=== PATIENT | male | born 1940 | race Caucasian/White ===

== ENCOUNTER → 2020-04-13 | Outpatient (CLI) | payer MEDICARE ==
[~2020-04-13] MED LIST: ALPR0.5T7 PO; AZIT500T PO; ESCI10TA10 PO; LEVO750T26 PO; PRED10TA PO; PRED20TA PO; PRED50TA PO
== END | disposition home or self-care (01) ==
LOC: STAR 12:31
PROVIDERS: ATTEND Anesthesiology
DX: Z01.812 Encounter for preprocedural laboratory examination (principal); Z20.828 Contact with and (suspected) exposure to other viral communicable diseases
CPT/HCPCS: 36415; 87635

== ENCOUNTER → 2020-05-30 | Outpatient (CLI) | payer MEDICARE ==
[~2020-05-30] MED LIST changes: +ALPR1TAB6 PO; +ASPI81TA45 PO; +ATOR-2 PO; +ATOR10TA9 PO; +CIPR500T3 PO; +CITA40TA5 PO; +FLUT9.9S NAS; +HYDR12.517 PO; +LOSA50TA14 PO; +METF500T17 PO; +PIOG15TA69 PO; +TAMS-11 PO
[2020-05-30 11:22] LABS: BASOPHILS % (AUTO) 1 % (0-1); EOSINOPHILS % (AUTO) 4 % (1-7); LYMPHOCYTES % (AUTO) 25 % (22-44); MEAN CORPUSCULAR HEMOGLOBIN 31.9 pg (27.5-34.5); MEAN CORPUSCULAR HGB CONC 33.5 g/dL (33.2-36.2); MONOCYTES % (AUTO) 9 % (2-9); NEUTROPHILS % (AUTO) 61 % (42-75); PLATELET COUNT 262 x10^3/uL (130-400); RED BLOOD COUNT 4.07 x10^6/uL (4.38-5.82)
[2020-05-30 11:24] LABS: MD NO
[2020-05-30 11:27] LABS: ALBUMIN 3.7 g/dL (3.4-5.0); ANION GAP 4 mmol/L (5-15); CALCIUM 9.2 mg/dL (8.5-10.1); CHLORIDE 105 mmol/L (98-107)
[2020-05-30 11:32] LABS: ALANINE AMINOTRANSFERASE 24 U/L (12-78); ALKALINE PHOSPHATASE 125 U/L (45-117); BILIRUBIN,TOTAL 0.9 mg/dL (0.2-1.0); CREATININE 1.14 mg/dL (0.7-1.3); TOTAL PROTEIN 7.2 g/dL (6.4-8.2)
== END | disposition home or self-care (01) ==
LOC: STAR 09:51
PROVIDERS: ATTEND Urology
DX: Z01.812 Encounter for preprocedural laboratory examination (principal); Z20.828 Contact with and (suspected) exposure to other viral communicable diseases; N20.0 Calculus of kidney; I25.2 Old myocardial infarction
CPT/HCPCS: 36415; 80053; 85025; 87635; 93005

== ENCOUNTER 2020-06-04 13:22 | Day surgery (SDC) | payer MEDICARE ==
[~2020-06-04] VITALS: Ht 167.6 cm; Wt 94.8 kg
[2020-06-04 13:48] VITALS: BP 128/80
[2020-06-04] MEDS ORDERED: CHLORHEXIDINE 15 ML UDC ONE (13:55)
[2020-06-04] MEDS ORDERED: CHLORHEXIDINE 15 ML UDC MM ONE (14:00)
[2020-06-04] MEDS ORDERED: LACTATED RINGERS 1,000 ML IV SCH (14:00)
[2020-06-04] MEDS ORDERED: ONDANSETRON 2MG/ML, 2ML ONE (15:50)
[2020-06-04] MEDS ORDERED: KETOROLAC 30 MG/1 ML ONE (15:50)
[2020-06-04] MEDS ORDERED: CEFAZOLIN 1,000 MG ONE (15:50)
[2020-06-04] MEDS ORDERED: DEXAMETHASONE 4 MG/ML, 1ML ONE (15:50)
[2020-06-04] MEDS ORDERED: PROPOFOL 10 MG/ML, 20ML ONE (15:50)
[2020-06-04] MEDS ORDERED: LIDOCAINE-MPF 1%, 2ML ONE (15:50)
[2020-06-04] MEDS ORDERED: FENTANYL PF 250 MCG/5ML ONE (16:06)
[2020-06-04] MEDS ORDERED: hydrALAzine 20 MG/ML, 1ML IV PRN (16:30)
[2020-06-04] MEDS ORDERED: FENTANYL PF 100 MCG/2ML IV PRN (16:30)
[2020-06-04] MEDS ORDERED: LABETALOL 5MG/ML, 20ML IV PRN (16:30)
[2020-06-04] MEDS ORDERED: LORazepam 2 MG/ML, 1ML IVPush PRN (16:30)
[2020-06-04] MEDS ORDERED: METHOCARBAMOL 1,000 MG in DEXTROSE 5% 100 ML IV PRN (16:30)
[2020-06-04] MEDS ORDERED: ONDANSETRON 2MG/ML, 2ML IVPush PRN (16:30)
[2020-06-04] MEDS ORDERED: HYDROmorphone 1 MG/ML, 1ML INJ IVPush PRN (16:30)
[2020-06-04] MEDS ORDERED: ACETAMINOPHEN 325 MG TABLET PO PRN (16:30)
[2020-06-04] MEDS ORDERED: OXYcodone 5 MG/5 ML ORAL.SOL UDC PO PRN (16:30)
[2020-06-04] MEDS ORDERED: HALOPERIDOL 5 MG/ML IV PRN (16:30)
== END 2020-06-04 18:10 | disposition home or self-care (01) ==
LOC: OR 13:22
PROVIDERS: ATTEND Urology
DX: Z46.6 Encounter for fitting and adjustment of urinary device (principal); N20.1 Calculus of ureter; N40.0 Benign prostatic hyperplasia without lower urinary tract symptoms; N30.30 Trigonitis without hematuria; I10 Essential (primary) hypertension; E11.9 Type 2 diabetes mellitus without complications; E78.5 Hyperlipidemia, unspecified; E66.9 Obesity, unspecified; Z79.899 Other long term (current) drug therapy; Z86.73 Personal history of transient ischemic attack (TIA), and cerebral infarction without residual deficits; Z87.440 Personal history of urinary (tract) infections
CPT/HCPCS: 52351; 82962; J0690; J1100; J1885; J2405; J2704; J3010; J7120; 76000

== ENCOUNTER 2020-06-07 16:23 | Inpatient (IN) | payer MEDICARE ==
[~2020-06-07] VITALS: Ht 167.6 cm; Wt 94.4 kg
--- NOTE | 2020-06-07 17:11 | NUR ---
IV STARTED, LABS WITH 2 SETS OF BLOOD CULTURES DRAWN BY GENERAL INTERNIST. PT ON MONITOR, AUTO BP AND PULSE OX. PT AWARE OF WAITING FOR TEST RESULTS AND TO BE ADMITTED INPATIENT.
[2020-06-07 17:15] LABS: MEAN CORPUSCULAR HEMOGLOBIN 31.4 pg (27.5-34.5); MEAN CORPUSCULAR HGB CONC 32.9 g/dL (33.2-36.2); MEAN PLATELET VOLUME 7.8 fL (7.4-10.4); PLATELET COUNT 240 x10^3/uL (130-400); RED BLOOD COUNT 3.63 x10^6/uL (4.38-5.82); RED CELL DISTRIBUTION WIDTH 14.4 % (9.4-14.8)
[2020-06-07 17:21] LABS: ALANINE AMINOTRANSFERASE 24 U/L (12-78); ALBUMIN 3.1 g/dL (3.4-5.0); ANION GAP 8 mmol/L (5-15); CALCIUM 8.8 mg/dL (8.5-10.1); CHLORIDE 106 mmol/L (98-107); CREATININE 1.15 mg/dL (0.7-1.3)
[2020-06-07 17:23] LABS: ALKALINE PHOSPHATASE 108 U/L (45-117); BILIRUBIN,TOTAL 1.6 mg/dL (0.2-1.0); TOTAL PROTEIN 6.5 g/dL (6.4-8.2)
[2020-06-07 18:09] LABS: MD YES
[2020-06-07 18:12] LABS: BAND#(MANUAL) 1.16 x10^3/uL; BANDS%(MANUAL) 6 % (0-7); BASOS#(MANUAL) 0.19 x10^3/uL (0-0.1); BASOS% (MANUAL) 1 % (0-1); EOS#(MANUAL) 0.58 x10^3/uL (0.0-0.4); EOS% (MANUAL) 3 % (1-7); LYMPH#(MANUAL) 0.97 x10^3/uL (1-3.4); LYMPHS% (MANUAL) 5 % (22-44); MONOS#(MANUAL) 0.97 x10^3/uL (0.3-2.7); MONOS% (MANUAL) 5 % (2-9); SEG#(MANUAL) 15.44 x10^3/uL (1.8-6.8); SEGS% (MANUAL) 80 % (42-75); TOXIC GRAN 1+
[2020-06-07 18:13] LABS: <PLATELET ESTIMATE> ADEQUATE; ANISOCYTOSIS 1+
[2020-06-07 18:14] LABS: HYPOCHROMIA 2+; SMUDGE CELLS 1+
[2020-06-07 18:15] LABS: <PLT MORPHOLOGY> NORMAL PLT MORPH; CRENATED 1+; TEAR DROPS 1+
--- NOTE | 2020-06-07 18:54 | NUR ---
BS REPORT TO JACKELYN GAONA.
--- NOTE | 2020-06-07 18:55 | NUR ---
BEDSIDE REPORT FROM CELESTE GAONA, PT CARE TRANSFERRED AT THIS TIME.
[2020-06-07] MEDS ORDERED: CEFTRIAXONE PMX 2GM/50ML 50 ML IVPB ONE (19:00)
[2020-06-07 19:02] LABS: MICROSCOPIC INDICATED
[2020-06-07] MEDS ORDERED: CEFTRIAXONE PMX 2GM/50ML 50 ML ONE (19:25)
--- NOTE | 2020-06-07 19:41 | NUR ---
PT MEDICATED PER MAR, CHANGED DUE TO URINATION, PROVIDED URINAL, NAD, BED IN LOWEST, UPDATED ON CARE. WCTM.
[2020-06-07] MEDS ORDERED: SODIUM CHLORIDE 0.9% 1,000 ML IV SCH (20:30)
[2020-06-07] MEDS ORDERED: ONDANSETRON 2MG/ML, 2ML IVPush PRN (20:30)
[2020-06-07] MEDS ORDERED: DOCUSATE 100 MG CAPSULE PO PRN (20:30)
--- NOTE | 2020-06-07 20:40 | NUR ---
LATE ENTRY D/T PT CARE: PT PROVIDED MEAL PER REQUEST. NAD, DENIES ADDITIONAL NEEDS, NO CHANGE IN CONDITION, WCTM.
[2020-06-07] MEDS: INSULIN LISPRO 100 UNITS/ML, PEN SQ-INSULIN SCH (21:00)
[2020-06-07 21:06] LABS: C-REACTIVE PROTEIN, QUANT 16.4 mg/dL (0.02-0.49)
[2020-06-07 21:22] LABS: D-DIMER (DIC) 0.49 ug/mlFEU (0.00-0.52); PROTIME 11.8 Seconds (9.6-11.5)
--- NOTE | 2020-06-07 21:22 | NUR ---
PT REPORT TO JOSSE RN, PT CARE TO BE TRANSFERRED UPON ARRIVAL TO FLOOR. PT NAD, RESTING ON GURNEY, FINISHED MEAL, DENIES ADDITIONAL NEEDS. WCTM.
[2020-06-07 21:32] VITALS: BP 132/75
[2020-06-07] MEDS: ALPRazolam 1MG TAB PO PRN (21:53)
[2020-06-07] MEDS: HEPARIN 5,000 UNITS/ML, 1ML SQ SCH (21:53)
[2020-06-07] MEDS: ATORVASTATIN 80 MG TABLET PO SCH (21:53)
[2020-06-07 21:55] LABS: RAPID INFLUENZA A Negative (Negative); RAPID INFLUENZA B Negative (Negative)
[2020-06-08 02:34] VITALS: BP 139/80
[2020-06-08] MEDS: HEPARIN 5,000 UNITS/ML, 1ML SQ SCH ×3 (05:21→22:20)
[2020-06-08 06:14] LABS: BASOPHILS % (AUTO) 0 % (0-1); EOSINOPHILS % (AUTO) 2 % (1-7); LYMPHOCYTES % (AUTO) 11 % (22-44); MEAN CORPUSCULAR HEMOGLOBIN 31.6 pg (27.5-34.5); MEAN PLATELET VOLUME 8.2 fL (7.4-10.4); MONOCYTES % (AUTO) 8 % (2-9); NEUTROPHILS % (AUTO) 80 % (42-75); PLATELET COUNT 252 x10^3/uL (130-400); RED BLOOD COUNT 3.84 x10^6/uL (4.38-5.82); RED CELL DISTRIBUTION WIDTH 14.1 % (9.4-14.8)
[2020-06-08 06:25] LABS: CALCIUM 8.9 mg/dL (8.5-10.1); CHLORIDE 105 mmol/L (98-107)
[2020-06-08 06:27] LABS: ANION GAP 6 mmol/L (5-15); CREATININE 0.93 mg/dL (0.7-1.3)
[2020-06-08] MEDS: INSULIN LISPRO 100 UNITS/ML, PEN SQ-INSULIN SCH ×4 (07:00→21:00)
[2020-06-08 07:10] VITALS: BP 115/62
[2020-06-08] MEDS: CITALOPRAM 20 MG TABLET PO SCH (08:01)
[2020-06-08] MEDS: FLUTICASONE NASAL SPRAY 16GM NAS SCH (08:01)
[2020-06-08] MEDS: TAMSULOSIN 0.4 MG CAP.ER.24H PO SCH (08:01)
[2020-06-08] MEDS: HYDROCHLOROTHIAZIDE 12.5 MG CAPSULE PO SCH (08:01)
[2020-06-08] MEDS: LOSARTAN 50MG TABLET PO SCH (08:01)
[2020-06-08] MEDS: ASPIRIN 81 MG TABLET EC PO SCH (08:03)
[2020-06-08 08:34] LABS: MD SCAN
[2020-06-08 12:14] VITALS: BP 120/71
[2020-06-08] MEDS: ACETAMINOPHEN 325 MG TABLET PO PRN (16:55)
[2020-06-08 18:41] VITALS: BP 120/72
[2020-06-08] MEDS ORDERED: CEFTRIAXONE PMX 1GM/50ML 50 ML IV SCH (19:00)
[2020-06-08] MEDS ORDERED: INSULIN GLARGINE 100 UNITS/ML, PEN SQ-INSULIN SCH (21:00)
[2020-06-08] MEDS: ATORVASTATIN 80 MG TABLET PO SCH (22:20)
[2020-06-09 01:05] VITALS: BP 145/78
[2020-06-09 04:43] LABS: BASOPHILS % (AUTO) 1 % (0-1); EOSINOPHILS % (AUTO) 7 % (1-7); LYMPHOCYTES % (AUTO) 14 % (22-44); MD NO; MEAN CORPUSCULAR HGB CONC 33.7 g/dL (33.2-36.2); MEAN PLATELET VOLUME 8.3 fL (7.4-10.4); MONOCYTES % (AUTO) 9 % (2-9); NEUTROPHILS % (AUTO) 70 % (42-75); PLATELET COUNT 240 x10^3/uL (130-400); RED CELL DISTRIBUTION WIDTH 14.4 % (9.4-14.8)
[2020-06-09 04:50] LABS: ANION GAP 4 mmol/L (5-15); CALCIUM 8.8 mg/dL (8.5-10.1); CHLORIDE 104 mmol/L (98-107); CREATININE 0.97 mg/dL (0.7-1.3)
[2020-06-09] MEDS: HEPARIN 5,000 UNITS/ML, 1ML SQ SCH ×3 (05:30→20:15)
[2020-06-09] MEDS: INSULIN LISPRO 100 UNITS/ML, PEN SQ-INSULIN SCH ×4 (07:00→20:16)
[2020-06-09 07:10] VITALS: BP 119/74
[2020-06-09] MEDS: TAMSULOSIN 0.4 MG CAP.ER.24H PO SCH (08:38)
[2020-06-09] MEDS: CITALOPRAM 20 MG TABLET PO SCH (08:38)
[2020-06-09] MEDS: ASPIRIN 81 MG TABLET EC PO SCH (08:38)
[2020-06-09] MEDS: LOSARTAN 50MG TABLET PO SCH (08:38)
[2020-06-09] MEDS: FLUTICASONE NASAL SPRAY 16GM NAS SCH (08:38)
[2020-06-09] MEDS: HYDROCHLOROTHIAZIDE 12.5 MG CAPSULE PO SCH (08:38)
[2020-06-09] MEDS: ACETAMINOPHEN 325 MG TABLET PO PRN ×2 (11:15→19:25)
[2020-06-09 13:57] VITALS: BP 121/73
[2020-06-09] MEDS: CEFTAZIDIME PMX 2 GM/50ML 50 ML IV SCH (16:46)
[2020-06-09 19:50] VITALS: BP 144/87
[2020-06-09] MEDS: ALPRazolam 1MG TAB PO PRN (20:14)
[2020-06-09] MEDS: ATORVASTATIN 80 MG TABLET PO SCH (20:14)
[2020-06-09] MEDS: INSULIN GLARGINE 100 UNITS/ML, PEN SQ-INSULIN SCH (20:20)
[2020-06-09 21:15] VITALS: BP 148/79
[2020-06-10] MEDS: CEFTAZIDIME PMX 2 GM/50ML 50 ML IV SCH ×3 (00:31→15:29)
[2020-06-10 00:32] VITALS: BP 147/74
[2020-06-10] MEDS: HEPARIN 5,000 UNITS/ML, 1ML SQ SCH ×3 (05:18→22:39)
[2020-06-10] MEDS: INSULIN LISPRO 100 UNITS/ML, PEN SQ-INSULIN SCH ×4 (07:00→21:07)
[2020-06-10 07:29] VITALS: BP 138/82
[2020-06-10] MEDS: TAMSULOSIN 0.4 MG CAP.ER.24H PO SCH (08:43)
[2020-06-10] MEDS: CITALOPRAM 20 MG TABLET PO SCH (08:43)
[2020-06-10] MEDS: HYDROCHLOROTHIAZIDE 12.5 MG CAPSULE PO SCH (08:43)
[2020-06-10] MEDS: LOSARTAN 50MG TABLET PO SCH (08:43)
[2020-06-10] MEDS: ASPIRIN 81 MG TABLET EC PO SCH (08:43)
[2020-06-10] MEDS: FLUTICASONE NASAL SPRAY 16GM NAS SCH (08:47)
[2020-06-10 12:30] VITALS: BP 134/81
[2020-06-10] MEDS: ACETAMINOPHEN 325 MG TABLET PO PRN (19:15)
[2020-06-10 19:26] VITALS: BP 152/80
[2020-06-10] MEDS: ALPRazolam 1MG TAB PO PRN (21:06)
[2020-06-10] MEDS: ATORVASTATIN 80 MG TABLET PO SCH (21:06)
[2020-06-10] MEDS: INSULIN GLARGINE 100 UNITS/ML, PEN SQ-INSULIN SCH (21:07)
[2020-06-11] MEDS: CEFTAZIDIME PMX 2 GM/50ML 50 ML IV SCH ×4 (00:18→23:40)
[2020-06-11 02:00] VITALS: BP 143/74
[2020-06-11 05:49] LABS: BASOPHILS % (AUTO) 1 % (0-1); EOSINOPHILS % (AUTO) 8 % (1-7); LYMPHOCYTES % (AUTO) 22 % (22-44); MEAN CORPUSCULAR HEMOGLOBIN 31.7 pg (27.5-34.5); MEAN CORPUSCULAR HGB CONC 33.7 g/dL (33.2-36.2); MEAN PLATELET VOLUME 7.9 fL (7.4-10.4); MONOCYTES % (AUTO) 12 % (2-9); NEUTROPHILS % (AUTO) 57 % (42-75); PLATELET COUNT 292 x10^3/uL (130-400); RED BLOOD COUNT 3.91 x10^6/uL (4.38-5.82); RED CELL DISTRIBUTION WIDTH 14.4 % (9.4-14.8)
[2020-06-11 05:55] LABS: MD NO
[2020-06-11] MEDS: HEPARIN 5,000 UNITS/ML, 1ML SQ SCH ×3 (06:15→20:46)
[2020-06-11] MEDS: INSULIN LISPRO 100 UNITS/ML, PEN SQ-INSULIN SCH ×4 (07:00→20:58)
[2020-06-11 07:28] VITALS: BP 147/84
[2020-06-11] MEDS: ACETAMINOPHEN 325 MG TABLET PO PRN ×2 (07:47→20:47)
[2020-06-11] MEDS: TAMSULOSIN 0.4 MG CAP.ER.24H PO SCH (07:47)
[2020-06-11] MEDS: LOSARTAN 50MG TABLET PO SCH (07:47)
[2020-06-11] MEDS: CITALOPRAM 20 MG TABLET PO SCH (07:48)
[2020-06-11] MEDS: HYDROCHLOROTHIAZIDE 12.5 MG CAPSULE PO SCH (07:48)
[2020-06-11] MEDS: FLUTICASONE NASAL SPRAY 16GM NAS SCH (07:48)
[2020-06-11] MEDS: ASPIRIN 81 MG TABLET EC PO SCH (07:48)
[2020-06-11 13:33] VITALS: BP 130/77
[2020-06-11 20:22] VITALS: BP 152/78
[2020-06-11] MEDS: ATORVASTATIN 80 MG TABLET PO SCH (20:47)
[2020-06-11] MEDS: ALPRazolam 1MG TAB PO PRN (20:47)
[2020-06-11] MEDS ORDERED: CIPR500T3 PO (20:48)
[2020-06-11] MEDS ORDERED: INSULIN GLARGINE 100 UNITS/ML, PEN SQ-INSULIN SCH (21:00)
[2020-06-12 00:55] VITALS: BP 130/74
[2020-06-12] MEDS: HEPARIN 5,000 UNITS/ML, 1ML SQ SCH ×2 (05:30→13:30)
[2020-06-12] MEDS: INSULIN LISPRO 100 UNITS/ML, PEN SQ-INSULIN SCH ×2 (07:00→11:59)
[2020-06-12] MEDS: CEFTAZIDIME PMX 2 GM/50ML 50 ML IV SCH ×2 (08:28→15:10)
[2020-06-12] MEDS: FLUTICASONE NASAL SPRAY 16GM NAS SCH (08:31)
[2020-06-12] MEDS: ASPIRIN 81 MG TABLET EC PO SCH (08:36)
[2020-06-12] MEDS: CITALOPRAM 20 MG TABLET PO SCH (08:36)
[2020-06-12] MEDS: TAMSULOSIN 0.4 MG CAP.ER.24H PO SCH (08:36)
[2020-06-12] MEDS: HYDROCHLOROTHIAZIDE 12.5 MG CAPSULE PO SCH (08:36)
[2020-06-12] MEDS: ACETAMINOPHEN 325 MG TABLET PO PRN (08:36)
[2020-06-12] MEDS: LOSARTAN 50MG TABLET PO SCH (08:36)
[2020-06-12 09:06] VITALS: BP 143/82
[2020-06-12 14:35] VITALS: BP 126/70
== END 2020-06-12 15:26 | disposition home health service (06) | DRG 872 ==
LOC: ED 20:25 → EDIP 20:54 → 3N 21:24 → DCLOUNGE 06-12 15:22
PROVIDERS: ADMIT Family Medicine; ATTEND Internal Medicine
PROC: 0T9B30Z Drainage of Bladder with Drainage Device, Percutaneous Approach (ICD-10-PCS; principal; 2020-06-07)
DX: A41.9 Sepsis, unspecified organism (principal); N39.0 Urinary tract infection, site not specified; E87.2 Acidosis; N20.2 Calculus of kidney with calculus of ureter; Q21.1 Atrial septal defect; I10 Essential (primary) hypertension; E78.5 Hyperlipidemia, unspecified; E11.9 Type 2 diabetes mellitus without complications; D72.829 Elevated white blood cell count, unspecified; F32.9 Major depressive disorder, single episode, unspecified; G43.909 Migraine, unspecified, not intractable, without status migrainosus; F41.1 Generalized anxiety disorder; G47.33 Obstructive sleep apnea (adult) (pediatric); Z79.4 Long term (current) use of insulin; Z79.899 Other long term (current) drug therapy; Z86.73 Personal history of transient ischemic attack (TIA), and cerebral infarction without residual deficits; Z87.440 Personal history of urinary (tract) infections; Z87.442 Personal history of urinary calculi; Z79.01 Long term (current) use of anticoagulants; Z79.82 Long term (current) use of aspirin; B96.5 Pseudomonas (aeruginosa) (mallei) (pseudomallei) as the cause of diseases classified elsewhere
CPT/HCPCS: 36415; 71045; 76770; 80048; 80053; 81001; 82728; 82962; 83036; 83605; 83615; 84145; 85025; 85049; 85379; 85384; 85610; 85730; 86140; 87040; 87077; 87086; 87186; 87400; 93005; G0378; J0696; J1644; J0713; J1815; J7030